=== PATIENT | female | born 1940 | race Caucasian/White ===

== ENCOUNTER → 2021-06-12 | Outpatient (CLI) | payer MEDICARE ==
[~2021-06-12] MED LIST: ASPIRIN 81M81 MG/TA2 PO; CARAFATE 1GM1 G PO; DIABETA 5MG5 MG/TAB PO; GLUCOPHAGE500 MG/TAB PO; IMDUR 30MG30 MG/TAB PO; IMDUR120 MG PO; LEVEMIR FLEXPEN SQ; LIPITOR 80MG80 MG PO; LOPRESSOR 550 MG/TAB PO; MAALOX EXTRA S150 ML PO; NITROSTAT0.4 MG/TAB SL; NORVASC 5MG5 MG/TAB PO; PLAVIX 75MG TAB75 MG PO; PRIL40 PO; TOPROL XL 50MG50 MG PO; ZESTRIL 5MG5 MG PO
== END ==
LOC: COL.VAS 13:24
DX: E11.69 Type 2 diabetes mellitus with other specified complication (principal); I25.10 Atherosclerotic heart disease of native coronary artery without angina pectoris; E78.5 Hyperlipidemia, unspecified; I10 Essential (primary) hypertension